=== PATIENT | female | born 1985 | race Caucasian/White ===

== ENCOUNTER → 2021-06-27 10:05 | Outpatient (BNVA) | payer OTHER, SELFPAY | PROVIDERS: Visit Provider Nurse Practitioner Family | DX: M54.16 Radiculopathy, lumbar region (principal) | CPT/HCPCS: 99202 ==

== ENCOUNTER → 2022-05-16 13:17 | Outpatient (BNVA) | payer OTHER, SELFPAY | PROVIDERS: Visit Provider Anesthesiology | DX: M54.16 Radiculopathy, lumbar region (principal) | CPT/HCPCS: 99212 ==

== ENCOUNTER 2022-08-02 14:24 | Outpatient (REF) | payer OTHER, SELFPAY ==
--- NOTE | 2022-08-02 10:00 | EMG_ITS ---
Left tibial and peroneal motor studies were performed. Left superficial peroneal, sural, and medial and lateral plantar sensory studies were performed. Tibial H-reflex was obtained and needle examination was performed. IMPRESSION: Chronic left lower lumbar radiculopathy. MD MARCELLO Mendez/BERKLEY / [id number]
== END 2022-08-02 14:25 | disposition home or self-care (01) ==
LOC: HO.NEURO 14:24
PROVIDERS: Visit Provider Anesthesiology
DX: M54.16 Radiculopathy, lumbar region (principal); G62.9 Polyneuropathy, unspecified
CPT/HCPCS: 95886; 95909

== ENCOUNTER → 2022-08-16 09:40 | Outpatient (BNVA) | payer OTHER, SELFPAY | PROVIDERS: Visit Provider Anesthesiology | DX: M54.16 Radiculopathy, lumbar region (principal) | CPT/HCPCS: 99212 ==